=== PATIENT | female | born 1970 | race Caucasian/White ===

== ENCOUNTER 2020-04-15 13:44 | Emergency (ER) | payer BC, OTHER ==
--- NOTE | 2020-04-15 14:59 | EDM.PDOC ---
ED HPI GENERAL MEDICAL PROBLEM - General Chief Complaint: General Stated Complaint: COVID SYMPTOMS Time Seen by Provider: 04/15/20 14:45 Source of Information: Reports: Patient, RN. Denies: Old Records History Limitations: Reports: Other (no records) - History of Present Illness INITIAL COMMENTS - FREE TEXT/NARRATIVE: 49 yo female dx with Covid last Tu presents with a cough during deep inspiration which is new. Has been having fevers intermittently. Not more SOB than usual. Is from [place]. Onset: Gradual Onset Date: 04/08/20 Duration: Week(s): (1), Waxing/Waning Location: Reports: Chest Quality: Reports: Other (no pain) Severity: Mild Improves with: Reports: Other (shallow breathing) Worsens with: Reports: Other (deep breathing) Context: Reports: Other (See HPI) Associated Symptoms: Reports: Cough, Fever/Chills (intermittent). 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 Denies: Shortness of Breath, Wheezing, Sputum Cardiovascular: Reports: No Symptoms Endocrine: Reports: No Symptoms GI/Abdominal: Reports: No Symptoms : Reports: No Symptoms Musculoskeletal: Reports: No Symptoms Skin: Reports: No Symptoms Neurological: Reports: No Symptoms ED EXAM, GENERAL - Physical Exam Exam: See Below Exam Limited By: No Limitations General Appearance: Alert, WD/WN, No Apparent Distress Eye Exam: Bilateral Eye: Normal Inspection Ears: Normal External Exam, Normal Canal, Hearing Grossly Normal, Normal TMs Ear Exam: Bilateral Ear: Auricle Normal, Canal Normal, TM normal Nose: Normal Inspection, No Blood Throat/Mouth: Normal Inspection, Normal Lips, Normal Oropharynx, Normal Voice, N o Airway Compromise Head: Atraumatic, Normocephalic Neck: Normal Inspection Respiratory/Chest: No Respiratory Distress, Lungs Clear, Normal Breath Sounds, No Accessory Muscle Use Cardiovascular: Regular Rate, Rhythm, No Edema Extremities: Normal Inspection Neurological: Alert, Oriented, CN II-XII Intact, Normal Cognition, No Motor/Sensory Deficits Psychiatric: Normal Affect, Normal Mood Skin Exam: Warm, Dry, Intact, Normal Color, No Rash Course - Vital Signs Last Recorded V/S: Last Vital Signs Temp 37.1 C 04/15/20 13:50 Pulse 81 04/15/20 13:50 Resp 20 04/15/20 13:50 BP 128/76 04/15/20 13:50 Pulse Ox 97 04/15/20 13:50 Departure - Departure Time of Disposition: 14:59 Disposition: Home, Self-Care 01 Condition: Good Clinical Impression: COVID-19, Cough - Discharge Information *PRESCRIPTION DRUG MONITORING PROGRAM REVIEWED*: No *COPY OF PRESCRIPTION DRUG MONITORING REPORT IN PATIENT KENZIE: No Instructions: COVID-19 Frequently Asked Questions Referrals: PCP,None [Primary Care Provider] - Additional Instructions: Take the cough med as needed for cough. Drink ample fluids. Take acetaminophen as needed for pain/fever control. Continue to isolate yourself to prevent spread. Recheck for shortness of breath. Sepsis Event Note (ED) - Evaluation Sepsis Screening Result: No Definite Risk - Focused Exam Vital Signs: Vital Signs Temp Pulse Resp BP Pulse Ox 04/15/20 13:50 37.1 C 81 20 128/76 97
== END 2020-04-15 15:21 | disposition home or self-care (01) ==
LOC: JP.ED 13:44
DX: U07.1 COVID-19 (principal)
CPT/HCPCS: 99282; 99283